=== PATIENT | female | born 1975 | race Caucasian/White ===

== ENCOUNTER 2016-10-13 16:07 | Inpatient (IN) | payer BC ==
[~2016-10-13] VITALS: Ht 157.5 cm; Wt 74.0 kg
[2016-10-13] VITALS (26 sets, daily range): BP systolic 124–164; BP diastolic 71–99
[2016-10-13] MEDS ORDERED: AMPICILLIN SOD 2 GM in D5W MINI-BAG PLUS 100 ML IV ONE (17:00)
[2016-10-13] MEDS ORDERED: MAG Sulf (L&D) 4 GM/100 ML 4 GM in APPROPRIATE DILUENT 1 EA IV ONE (17:00)
[2016-10-13] MEDS ORDERED: LABETALOL HCL 100 MG/20 ML VIAL IV SCH (17:15)
[2016-10-13] MEDS: BETAMETHASONE SOLUSPAN 6MG/ML INJ 5ML (J0702) IM SCH (17:35)
[2016-10-13] MEDS: LR 1,000 ML IV SCH ×2 (17:35→23:15)
[2016-10-13] MEDS ORDERED: PRENTAB9 PO (17:35)
[2016-10-13] MEDS: MAG Sulf (OBGYN) 20GM/500ML 20,000 MG in APPROPRIATE DILUENT 1 EA IV SCH (18:13)
[2016-10-13 18:32] LABS: BASO % 0.2 % (0.0-1.0); EOS # 0.1 K/mm3 (0.0-0.50); EOS % 0.7 % (0.0-3.0); LARGE UNSTAINED CELL # 0.2 K/mm3 (0.0-0.4); LARGE UNSTAINED CELL % 2.1 % (0.0-4.0); LYMPH # 1.5 K/mm3 (1.5-4.5); LYMPH % 16.2 % (24.0-44.0); MEAN CORPUSCULAR HEMOGLOBIN 21.3 pg (27.0-33.0); MEAN CORPUSCULAR HGB CONC 30.4 g/dl (32.0-36.5); MEAN CORPUSCULAR VOLUME 69.9 fl (80.0-96.0); MONO # 0.4 K/mm3 (0.0-0.8); MONO % 4.8 % (0.0-5.0); NEUTROPHILS # 6.8 K/mm3 (1.8-7.7); NEUTROPHILS % 75.9 % (36.0-66.0); PLATELET COUNT, AUTOMATED 180 k/mm3 (150-450); RED CELL DISTRIBUTION WIDTH 19.1 % (11.5-14.5); WHITE BLOOD COUNT 8.9 K/mm3 (4.0-10.0)
--- NOTE | 2016-10-13 18:34 | REP ---
Clinical: well-being and cervical length . Comparison: None . Findings: Examination demonstrates a single live advanced intrauterine in cephalic presentation. motion is identified by technologist. Placenta is noted anteriorly and grade II without evidence for placenta previa or abruption. Amniotic fluid volume is normal. Cervix measures 4.1 cm in length and appears closed. No evidence for nuchal cord. Gestational age by LMP 33 weeks 0 days with ILDA 12/01/2016 . Gestational age by current measurements 34 weeks 1 day with ILDA 11/23/2016 . FHR equals 180 beats per minute. Estimated weight 2359 grams ( 47th percentile). Amniotic fluid index equals 12.7 cm (8.1 - 24.8) Umbilical cord SD ratio equals 2.50 (2.00 - 3.00). 4 mm left choroid plexus cyst. Impression: 1. Single live advanced gestation in cephalic presentation demonstrating appropriate interval growth. 2. A 4 mm left choroid plexus cyst. 3. Amniotic fluid volume and estimated weight are within normal range. 4. Cervix measures 4.1 cm in length with a closed internal os. Signed by John Potter MD 10/13/2016 06:25 P
[2016-10-13 18:43] LABS: ADD MORPHOLOGY? YES
[2016-10-13 18:47] LABS: ANISOCYTOSIS 2+; MICROCYTOSIS 2+; POLYCHROMASIA 1+
[2016-10-13 18:49] LABS: ALT/SGPT 23 U/L (12-78); AST/SGOT 24 U/L (15-37); BILIRUBIN,TOTAL 0.3 MG/DL (0.2-1.0); CREATININE FOR GFR 0.49 MG/DL (0.55-1.02); GLOMERULAR FILTRATION RATE > 60.0 (>60); URIC ACID 4.2 MG/DL (2.6-6.0)
[2016-10-13] MEDS: AMPICILLIN SOD 1 GM in D5W MINI-BAG PLUS 50 ML IV SCH (23:15)
[2016-10-13 23:21] LABS: MEAN CORPUSCULAR HEMOGLOBIN 22.2 pg (27.0-33.0); MEAN CORPUSCULAR HGB CONC 31.9 g/dl (32.0-36.5); MEAN CORPUSCULAR VOLUME 69.6 fl (80.0-96.0); RED CELL DISTRIBUTION WIDTH 19.6 % (11.5-14.5); WHITE BLOOD COUNT 10.3 K/mm3 (4.0-10.0)
[2016-10-13 23:43] LABS: ALT/SGPT 23 U/L (12-78); AST/SGOT 24 U/L (15-37); BILIRUBIN,TOTAL 0.3 MG/DL (0.2-1.0); CREATININE FOR GFR 0.57 MG/DL (0.55-1.02); GLOMERULAR FILTRATION RATE > 60.0 (>60); URIC ACID 4.7 MG/DL (2.6-6.0)
[2016-10-14] VITALS (39 sets, daily range): BP systolic 119–144; BP diastolic 65–94
[2016-10-14] MEDS: AMPICILLIN SOD 1 GM in D5W MINI-BAG PLUS 50 ML IV SCH ×5 (01:56→17:20)
[2016-10-14] MEDS: LR 1,000 ML IV SCH ×2 (01:57→16:52)
[2016-10-14] MEDS: MAG Sulf (OBGYN) 20GM/500ML 20,000 MG in APPROPRIATE DILUENT 1 EA IV SCH ×2 (01:58→12:08)
[2016-10-14] MEDS: BETAMETHASONE SOLUSPAN 6MG/ML INJ 5ML (J0702) IM SCH (05:48)
[2016-10-14 07:12] LABS: MEAN CORPUSCULAR HEMOGLOBIN 21.5 pg (27.0-33.0); MEAN CORPUSCULAR HGB CONC 30.9 g/dl (32.0-36.5); MEAN CORPUSCULAR VOLUME 69.7 fl (80.0-96.0); RED CELL DISTRIBUTION WIDTH 19.7 % (11.5-14.5); WHITE BLOOD COUNT 8.8 K/mm3 (4.0-10.0)
--- NOTE | 2016-10-14 07:35 | HPE ---
DATE OF ADMISSION: 10/13/2016 Deyanira is a 41-year-old female, 2, para 0-0-1-0 with an EDC of 12/01/2016, EGA 33 weeks gestation, patient of Denise Thomas who was sent to the hospital for admission after presenting to her office with severely elevated blood pressure and complaints of headache and dizziness. She was found to have a 4+ protein on a random urine dipstick with +2 lower extremity edema. At this point, she is being sent for a further evaluation of severe preeclampsia. Upon my evaluation of her in labor and delivery, the patient denies any blurred vision. No headache. Did complain of some dizziness. As per the patient, no prior history of elevated blood pressure. She does report lower extremity edema as well as hand and facial swelling. Good movement. Her records reviewed, essentially unremarkable. labs: Blood type is O+, rubella immune, hepatitis negative, HIV negative, GC chlamydia negative. 1 hour GCT Testing was abnormal at 144. Her 3 hours sugar testing, fasting was 85, 1 hour 177, 2 hours 196 and 3 hours of 149. Her finger stick all throughout her care has been within normal limits. PAST MEDICAL HISTORY: Significant for anemia. PAST SURGICAL HISTORY: The patient had breast implants and labial reduction. SOCIAL HISTORY: Denies any alcohol or drug use. REVIEW OF SYSTEMS: Unremarkable. MEDICATIONS: - vitamins ALLERGIES: No known drug allergies. PHYSICAL EXAMINATION: Normal-appearing female in no acute distress. Abdomen: Soft, nontender, nondistended. Gravid. Extremities: No clubbing, cyanosis, +2-3 lower extremity edema. Deep tendon reflux (DTR) 2/4 bilaterally. Cervix soft and posterior. Tracing reviewed, category 1 tracing with contractions every 2-4 minutes. Blood pressure in Denise William's office was 158/100. Blood pressures here on admission was 160/94 with subsequent blood pressures done 158/97 and the latest was 125/91. ASSESSMENT: 1. Intra-Uterine at 33 weeks gestation r/o labor. 2. Preeclampsia, rule out severe preeclampsia. 3. Advanced maternal age 4. Diabetes diet control. The patient will be admitted to labor and delivery for observation, serial lab, bedside ultrasound ordered. Given her contraction pattern and her prematurity and the possibility of severe preeclampsia, we discussed treatment plan. A decision was made to start the patient on magnesium sulfate to stop the contraction, initiate betamethasone for lung maturity. Group B Streptococcus (GBS) culture done. Ampicillin will be started for GBS prophylaxis. The patient counseled extensively on delivery. Given her prematurity if she had to be delivered, baby would probably need to be in the NICU for over 4-5 weeks. At this point, we are not anticipating delivery. However, she will be monitored closely. If her preeclampsia worsen, she will be induced and if induction is not possible, a section will be entertained. cc: Denise OGLESBY
[2016-10-14 13:28] LABS: ALT/SGPT 23 U/L (12-78); AST/SGOT 24 U/L (15-37); BILIRUBIN,TOTAL 0.5 MG/DL (0.2-1.0); CREATININE FOR GFR 0.49 MG/DL (0.55-1.02); GLOMERULAR FILTRATION RATE > 60.0 (>60); URIC ACID 5.6 MG/DL (2.6-6.0)
[2016-10-14 13:37] LABS: MAGNESIUM LEVEL 6.5 MG/DL (1.8-2.4)
== END 2016-10-14 19:30 | disposition home or self-care (01) | DRG 566 ==
LOC: M LDO 16:07 → M LDI 17:32
PROVIDERS: ADMIT Obstetrics & Gynecology; ATTEND Obstetrics & Gynecology
DX: O14.13 Severe pre-eclampsia, third trimester (principal); O24.410 Gestational diabetes mellitus in pregnancy, diet controlled; O09.523 Supervision of elderly multigravida, third trimester; Z3A.33 33 weeks gestation of pregnancy

== ENCOUNTER 2016-10-19 20:07 | Outpatient (CLI) | payer BC ==
[~2016-10-19 20:07] MED LIST: PRENTAB9 PO
[2016-10-19 20:31] VITALS: BP 149/96
[2016-10-19 20:41] VITALS: BP 141/91
[2016-10-19 20:51] VITALS: BP 140/86
[2016-10-19 21:24] LABS: MEAN CORPUSCULAR HEMOGLOBIN 22.2 pg (27.0-33.0); MEAN CORPUSCULAR HGB CONC 31.8 g/dl (32.0-36.5); RED CELL DISTRIBUTION WIDTH 18.8 % (11.5-14.5)
[2016-10-19 21:30] LABS: ALT/SGPT 23 U/L (12-78); AST/SGOT 17 U/L (15-37); BILIRUBIN,TOTAL 0.2 MG/DL (0.2-1.0); CREATININE FOR GFR 0.61 MG/DL (0.55-1.02); GLOMERULAR FILTRATION RATE > 60.0 (>60); URIC ACID 4.4 MG/DL (2.6-6.0)
[2016-10-19 21:53] VITALS: BP 130/72
--- NOTE | 2016-10-19 22:28 | IPNPDOC ---
Obstetrical Progress Note Date of Service The patient was seen on 10/19/16 at 21:15. Progress Note SUBJECTIVE: Patient is a 41-year-old female who is a at 34 weeks 3 days gestation with an ILDA of 11/27/16 based off her LMP and consistent with her first trimester ultrasound. Patient initiated care in her first trimester at [facility] and transferred her care to [facility] midwifery with Denise Thomas CNM at 21 weeks gestation. She is now patient of [facility] services under Dr. Luaren due to the high risk of her . Patient's has been complicated by gestational diabetes that is diet controlled, onset of preeclampsia at 33 weeks gestation, and advanced maternal age. The patient is beta complete as of 10/14/2016. The patient presents to labor and delivery with complaints of right neck and shoulder pain that was a sudden onset. She reports she took 1000 mg of Tylenol at 4:30 PM with minimal relief. Patient also reports she took her blood pressure at home and it was 170/100. Patient currently denies any headache visual changes or epigastric pain. Reports active movement. Denies leaking of fluid, vaginal bleeding, or feeling any contractions. OBJECTIVE: heart rate 150 with moderate variability, positive accelerations, no decelerations. Contractions are every 2-9 minutes. Urine dipstick done: Specific gravity 1.025, pH 5, 3+ protein. PHYSICAL EXAMINATION: Respiratory: Respirations regular. No use of accessory muscles. Lungs clear bilaterally. Cardiac: Regular rate and regular rhythm. No murmurs auscultated. Abdomen: Gravid. Extremities: Bilateral lower legs and feet with 3-4+ pitting edema. Varicosities noted on left leg. Neurological: A and O 3. Cranial nerves grossly intact. PERRLA. No noted neurological impairments. VITAL SIGNS: Please see below. CURRENT LABS: Please see below. ASSESSMENT: * IUP at 34 weeks 3 days gestation * Preeclampsia * A1 GDM * Category 1 heart rate tracing * Advanced maternal age PLAN: Current preeclamptic labs obtained. Dr. Lauren notified of patient's labs , blood pressure, and status. The plan is to discharge patient to home with follow-up in the office within the next 2 days. Patient encouraged not to take blood pressure while she is at home. Encouraged to call office with any symptoms of preeclampsia or concerns about any abnormal symptoms. Preeclamptic signs and symptoms reviewed again with patient and . Reviewed current labs and blood pressure with patient. Reviewed access to care, rest coverage of care, kick counts, labor signs and symptoms, and danger signs to report. Comfort measures were reviewed with patient to include warm heat, massage and Tylenol as needed for pain management of neck and shoulder pain. VS, I&O, 24H, Fishbone Vital Signs/I&O Vital Signs Label Value Date Time Patient Temperature 97.3 degrees F 10/19/162152 Pulse 73 10/19/162152 Respiratory Rate 18 bpm 10/19/162152 Blood Pressure Assessment 130/72 (91) 10/19/162152 Source Automatic Cuff (NIBP) Vital Signs Label Value Date Time Pulse 86 10/19/162030 Respiratory Rate 18 bpm 10/19/162030 Blood Pressure Assessment 149/96 (113) 10/19/162030 Source Automatic Cuff (NIBP) Laboratory Data 24H LABS Item Value Date Time White Blood Count 8.0 K/mm3 10/19/162058 Red Blood Count 4.60 M/mm3 10/19/162058 Mean Corpuscular Volume 70.0 fl L 10/19/162058 Mean Corpuscular Hemoglobin 22.2 pg L 10/19/162058 Mean Corpuscular Hemoglobin Concent 31.8 g/dl L 10/19/162058 Red Cell Distribution Width 18.8 % H 10/19/162058 Platelet Count 192 k/mm3 10/19/162058 Creatinine 0.61 MG/DL 10/19/162058 Glomerular Filtration Rate > 60.0 10/19/162058 Uric Acid 4.4 MG/DL 10/19/162058 Total Bilirubin 0.2 MG/DL 10/19/162058 Aspartate Amino Transf (AST/SGOT) 17 U/L 10/19/162058 Alanine Aminotransferase (ALT/SGPT) 23 U/L 10/19/162058 Lactate Dehydrogenase 162 U/L 10/19/162058 CBC/BMP Laboratory Tests 10/19/16 20:59 NANCY ZAZUETA CNM Oct 19, 2016 22:22
== END 2016-10-19 22:45 | disposition home or self-care (01) ==
LOC: M LDO 20:07
PROVIDERS: ATTEND Obstetrics & Gynecology
DX: O24.420 Gestational diabetes mellitus in childbirth, diet controlled (principal); O09.523 Supervision of elderly multigravida, third trimester; Z3A.34 34 weeks gestation of pregnancy

== ENCOUNTER 2016-10-21 16:24 | Inpatient (IN) | payer BC ==
[2016-10-21] VITALS (41 sets, daily range): BP systolic 129–189; BP diastolic 74–109
[~2016-10-21] VITALS: Ht 157.5 cm; Wt 72.0 kg
[2016-10-21 17:24] LABS: MEAN CORPUSCULAR HEMOGLOBIN 21.6 pg (27.0-33.0); MEAN CORPUSCULAR HGB CONC 31.2 g/dl (32.0-36.5); MEAN CORPUSCULAR VOLUME 69.3 fl (80.0-96.0); RED CELL DISTRIBUTION WIDTH 18.4 % (11.5-14.5); WHITE BLOOD COUNT 10.4 K/mm3 (4.0-10.0)
[2016-10-21] MEDS ORDERED: LABETALOL HCL 100 MG/20 ML VIAL IV PRN (17:30)
[2016-10-21] MEDS ORDERED: LABETALOL HCL 100 MG/20 ML VIAL As Ordered ONE (17:35)
[2016-10-21] MEDS ORDERED: LABETALOL HCL 100 MG/20 ML VIAL IV ONE ×2 (17:45→18:15)
[2016-10-21 18:04] LABS: ALT/SGPT 29 U/L (12-78); AST/SGOT 33 U/L (15-37); BILIRUBIN,TOTAL 0.2 MG/DL (0.2-1.0); CREATININE FOR GFR 0.45 MG/DL (0.55-1.02); GLOMERULAR FILTRATION RATE > 60.0 (>60); URIC ACID 4.5 MG/DL (2.6-6.0)
[2016-10-21] MEDS ORDERED: LR 1,000 ML IV SCH (18:06)
[2016-10-21] MEDS: LR 1,000 ML IV SCH (18:12)
[2016-10-21] MEDS ORDERED: MAG Sulf (L&D) 4 GM/100 ML 4 GM in APPROPRIATE DILUENT 1 EA IV ONE (18:15)
[2016-10-21] MEDS ORDERED: LABETALOL HCL 100 MG/20 ML VIAL IV SCH (18:30)
[2016-10-21] MEDS ORDERED: OXYTOCIN DRIP 30 UNITS in APPROPRIATE DILUENT 1 EA IV SCH (19:00)
[2016-10-21] MEDS ORDERED: AMPICILLIN SOD 1 GM in D5W MINI-BAG PLUS 50 ML IV SCH (19:15)
[2016-10-21] MEDS: MAG Sulf (OBGYN) 20GM/500ML 20,000 MG in APPROPRIATE DILUENT 1 EA IV SCH (19:17)
--- NOTE | 2016-10-21 20:37 | HPE ---
DATE OF ADMISSION: 10/21/2016 HISTORY OF PRESENT ILLNESS: Deyanira is a 41-year-old female, para 0-0-1-0 with an estimated date of confinement (EDC) of 11/27/2016, estimated gestational age (EGA) 34-4/7 weeks gestation by 13 weeks ultrasound, seen in my office for last two weeks with preeclampsia. She was a late transfer at approximately 33 weeks gestation for preeclampsia. She was seen and evaluated in the hospital, was steroid complete and was discharged home with monitoring twice weekly with non-stress test (NST) and ultrasound. She presented today to the office with complaints of headache that will not go away, even after Tylenol. Headache is frontal. Denies any blurred vision. No shortness of breath. Her blood pressure upon evaluation in the office was 150/98. She had a prior 24 hours urine protein totaling 3,521, and a total protein of 180. Evaluation here in labor and delivery, her blood pressures continue to be elevated in the 170-160s over 107- 110. Again no blurred vision. No upper quadrant pain. Her records are reviewed. The patient does have a questionable history of gestational diabetes for which she has been doing her blood fingersticks twice a day and all have been within normal limits. Upon further evaluation of her three-hour sugar testing, it was found to be within normal limits. LABORATORIES: Blood type is O positive, rubella immune, hepatitis negative, HIV negative, GC/chlamydia negative, done on 10/13/2016, was positive for group B strep. PAST MEDICAL HISTORY: Significant for preeclampsia. PAST SURGICAL HISTORY: 1. Bilateral breast implants in 2015. 2. Loop electrosurgical excision procedure (LEEP) procedure done in 1996. 3. Labial reduction in 2013. SOCIAL HISTORY: She is . Denies any alcohol or drug use. REVIEW OF SYSTEMS: Significant for frontal headache. FAMILY HISTORY: Significant for thyroid cancer, heart disease and diabetes. MEDICATIONS: vitamins. ALLERGIES: SULFA DRUGS. PHYSICAL EXAMINATION: GENERAL: Normal-appearing female in no acute distress. ABDOMEN: Soft, nontender, nondistended, gravid. EXTREMITIES: No clubbing, cyanosis, +2 lower extremity edema. DTR 2/4 bilaterally. VAGINAL EXAM: Cervix is closed, thick and posterior, with the fetus at -3 to -4 station. Bedside ultrasound done confirmed fetus in vertex position. Category one tracing with baseline of 150s. No deceleration. Contractions every 3-4 minutes. LABORATORY DATA: Initial lab in labor and delivery: White count of 10.4, hemoglobin and hematocrit of 11.3 over 36, platelet of 165. Uric acid 4.5, AST 33, ALT 29, LDH 247. Random creatinine 99.2. Urine random total protein 722.3, protein ratio of 0.137. ASSESSMENT: 1. Intrauterine at 34-4/7 weeks gestation based on 13-week ultrasound ; steroid complete. 2. Severe preeclampsia with central nervous system (PATIENT SCHEDULING COORDINATOR) symptoms and severely elevated blood pressure. PLAN: The patient will be admitted to labor and delivery. Induction process discussed with the patient. Given the severe nature of her preeclampsia and her symptoms, we will proceed with delivery. She is to undergo magnesium sulfate for seizure prophylaxis. Labetalol IV given to control her blood pressures. Given that we do not have Cervidil on formulary in this hospital and no other form of approved cervical ripening agent other than Cytotec off label use for induction, I counseled the patient and her extensively. She will be observed as she is jolene every 3-[address] a Chacon bulb at this point as her cervix is closed. At this point, given her blood pressure and the contractions, Cytotec would not be a good option for this patient. Increase risks of cytotec for this patient discussed, including distress, meconeium fluid, uterine hyperstimulation and uterine rupture. I will continue to monitor. Followup serial labs, and if her cervix begins to dilate and a Chacon bulb can be placed, we will entertain a Chacon bulb with possible Pitocin induction. If severe pre-eclampsia worsen or symptoms persist and she remains remote from delivery, the possibility of section will be entertained. Both patient and agree with plan.. RENY
[2016-10-21] MEDS ORDERED: ACETAMINOPHEN TAB 650MG DOSE (2X325MG) PO ONE (20:45)
[2016-10-21 21:14] LABS: MEAN CORPUSCULAR HEMOGLOBIN 21.4 pg (27.0-33.0); MEAN CORPUSCULAR HGB CONC 30.7 g/dl (32.0-36.5); MEAN CORPUSCULAR VOLUME 69.6 fl (80.0-96.0); RED CELL DISTRIBUTION WIDTH 18.3 % (11.5-14.5); WHITE BLOOD COUNT 10.1 K/mm3 (4.0-10.0)
[2016-10-21 21:41] LABS: ALT/SGPT 29 U/L (12-78); AST/SGOT 29 U/L (15-37); BILIRUBIN,TOTAL 0.2 MG/DL (0.2-1.0); CREATININE FOR GFR 0.46 MG/DL (0.55-1.02); GLOMERULAR FILTRATION RATE > 60.0 (>60); MAGNESIUM LEVEL 4.2 MG/DL (1.8-2.4); URIC ACID 4.4 MG/DL (2.6-6.0)
[2016-10-22] VITALS (42 sets, daily range): BP systolic 120–157; BP diastolic 65–99
[2016-10-22 01:17] LABS: MEAN CORPUSCULAR HEMOGLOBIN 21.7 pg (27.0-33.0); MEAN CORPUSCULAR HGB CONC 30.9 g/dl (32.0-36.5); MEAN CORPUSCULAR VOLUME 70.3 fl (80.0-96.0); RED CELL DISTRIBUTION WIDTH 18.5 % (11.5-14.5); WHITE BLOOD COUNT 12.3 K/mm3 (4.0-10.0)
[2016-10-22 01:25] LABS: ALT/SGPT 31 U/L (12-78); AST/SGOT 33 U/L (15-37); BILIRUBIN,TOTAL 0.3 MG/DL (0.2-1.0); CREATININE FOR GFR 0.54 MG/DL (0.55-1.02); GLOMERULAR FILTRATION RATE > 60.0 (>60); URIC ACID 4.7 MG/DL (2.6-6.0)
[2016-10-22] MEDS ORDERED: ONDANSETRON 4MG/2ML VIAL (J2405) As Ordered ONE ×2 (04:37→12:52)
[2016-10-22] MEDS ORDERED: ONDANSETRON 4MG/2ML VIAL (J2405) IV ONE (04:45)
[2016-10-22] MEDS: LR 1,000 ML IV SCH (05:03)
[2016-10-22] MEDS: MAG Sulf (OBGYN) 20GM/500ML 20,000 MG in APPROPRIATE DILUENT 1 EA IV SCH ×2 (05:04→13:30)
[2016-10-22 06:40] LABS: MEAN CORPUSCULAR HEMOGLOBIN 22.2 pg (27.0-33.0); MEAN CORPUSCULAR HGB CONC 31.7 g/dl (32.0-36.5); MEAN CORPUSCULAR VOLUME 70.2 fl (80.0-96.0); RED CELL DISTRIBUTION WIDTH 18.8 % (11.5-14.5); WHITE BLOOD COUNT 13.2 K/mm3 (4.0-10.0)
[2016-10-22 06:53] LABS: ALT/SGPT 34 U/L (12-78); AST/SGOT 36 U/L (15-37); BILIRUBIN,TOTAL 0.3 MG/DL (0.2-1.0); CREATININE FOR GFR 0.51 MG/DL (0.55-1.02); GLOMERULAR FILTRATION RATE > 60.0 (>60); URIC ACID 4.7 MG/DL (2.6-6.0)
[2016-10-22 06:55] LABS: MAGNESIUM LEVEL 6.2 MG/DL (1.8-2.4)
[2016-10-22] MEDS: PRENATAL VITAMIN TAB PO SCH ×2 (09:00→15:50)
[2016-10-22 10:07] LABS: MEAN CORPUSCULAR HEMOGLOBIN 21.2 pg (27.0-33.0); MEAN CORPUSCULAR HGB CONC 30.2 g/dl (32.0-36.5); MEAN CORPUSCULAR VOLUME 70.2 fl (80.0-96.0); RED CELL DISTRIBUTION WIDTH 18.5 % (11.5-14.5); WHITE BLOOD COUNT 12.7 K/mm3 (4.0-10.0)
[2016-10-22 10:14] LABS: ALT/SGPT 38 U/L (12-78); AST/SGOT 43 U/L (15-37); BILIRUBIN,TOTAL 0.3 MG/DL (0.2-1.0); CREATININE FOR GFR 0.53 MG/DL (0.55-1.02); GLOMERULAR FILTRATION RATE > 60.0 (>60); URIC ACID 4.9 MG/DL (2.6-6.0)
[2016-10-22] MEDS ORDERED: LACTATED RINGER'S 1000 ML IV STA (10:24)
[2016-10-22] MEDS ORDERED: BICITRA 30ML SOLN UDC PO ONE (10:30)
[2016-10-22] MEDS ORDERED: MORPHINE PRES-FREE INJ 10 MG/10 ML VIAL (J2274) As Ordered ONE (12:16)
[2016-10-22] MEDS ORDERED: METOCLOPRAMIDE INJ 10MG/2ML VIAL (J2765) IV PRN ×2 (12:32→14:30)
[2016-10-22] MEDS ORDERED: NALBUPHINE HCL 10 MG/ML AMP (J2300) IV PRN ×2 (12:32→14:30)
[2016-10-22] MEDS ORDERED: ONDANSETRON 4MG/2ML VIAL (J2405) IV PRN ×3 (12:32→14:30)
[2016-10-22] MEDS ORDERED: NALOXONE INJ 0.4 MG/1 ML VIAL (J2310) IV PRN ×2 (12:32)
[2016-10-22] MEDS ORDERED: KETOROLAC 60 MG/2 ML VIAL (J1885) As Ordered ONE (12:52)
[2016-10-22] MEDS ORDERED: ePHEDrine SULFATE 25 MG/5 ML(5MG/ML) SYRINGE As Ordered ONE (12:52)
[2016-10-22] MEDS ORDERED: OXYTOCIN INJ 10 UNITS/ML VIAL (J2590) As Ordered ONE (12:52)
[2016-10-22] MEDS ORDERED: PHENYLephrine HCL 500 MCG/5 ML (100MCG/ML) SYRINGE (J2370) As Ordered ONE (12:52)
[2016-10-22 13:17] LABS: CORD GAS ABE A -5.5; CORD GAS HCO3 A 21.4 MEQ/L; CORD GAS O2 SAT A 58.4 %; CORD GAS PCO2 A 46.6 mmHg; CORD GAS PH A 7.279 UNITS; CORD GAS PO2 A 26.8 mmHg; CORD GAS SBC A 19.1 MEQ/L; CORD GAS TCO2 A 22.8 MEQ/L
[2016-10-22] MEDS ORDERED: LR 1,000 ML IV SCH ×2 (13:17→14:30)
[2016-10-22 13:21] LABS: CORD GAS ABE V -1.9; CORD GAS HCO3 V 25.8 MEQ/L; CORD GAS O2 SAT V 60.5 %; CORD GAS PCO2 V 55.6 mmHg; CORD GAS PH V 7.285 UNITS; CORD GAS PO2 V 27.7 mmHg; CORD GAS SBC V 21.9 MEQ/L; CORD GAS TCO2 V 27.5 MEQ/L
[2016-10-22] MEDS ORDERED: ANUSOL HC CREAM 30GM TOP PRN (13:30)
[2016-10-22] MEDS ORDERED: MOM 30ML SUSPENSION UDC PO PRN (13:30)
[2016-10-22] MEDS ORDERED: METHYLERGONOVINE MALEATE 0.2 MG TAB PO PRN (13:30)
[2016-10-22] MEDS ORDERED: MEASLES,MUMPS,RUBELLA VACCINE INJ (MMR-II) (90707) SC SCH (13:30)
[2016-10-22] MEDS ORDERED: PERCOCET 5MG/325MG TAB PO PRN (14:30)
[2016-10-22] MEDS ORDERED: MEPERIDINE INJ 25 MG/ML VIAL (J2175) IV PRN (14:30)
[2016-10-22] MEDS ORDERED: fentaNYL 100 MCG/2 ML INJECTION (J3010) IV PRN (14:30)
[2016-10-22] MEDS: RHOGAM 300 MCG (1500 IU) INJ (J2790) IM SCH (15:40)
[2016-10-22 20:34] LABS: MEAN CORPUSCULAR HEMOGLOBIN 21.8 pg (27.0-33.0); MEAN CORPUSCULAR HGB CONC 31.7 g/dl (32.0-36.5); MEAN CORPUSCULAR VOLUME 68.6 fl (80.0-96.0); RED CELL DISTRIBUTION WIDTH 18.3 % (11.5-14.5)
[2016-10-22 20:37] LABS: ALT/SGPT 36 U/L (12-78); AST/SGOT 39 U/L (15-37); BILIRUBIN,TOTAL 0.2 MG/DL (0.2-1.0); CREATININE FOR GFR 0.76 MG/DL (0.55-1.02); GLOMERULAR FILTRATION RATE > 60.0 (>60); URIC ACID 5.2 MG/DL (2.6-6.0)
[2016-10-22 20:39] LABS: MAGNESIUM LEVEL 5.3 MG/DL (1.8-2.4)
[2016-10-22] MEDS: DOCUSATE SODIUM 100 MG CAP PO SCH (21:07)
[2016-10-23] VITALS (17 sets, daily range): BP systolic 123–198; BP diastolic 72–107
[2016-10-23] MEDS: NORCO, ANEXSIA 5/325MG TABLET (HYDROcodone/ACETAMINOPHEN) PO PRN ×3 (04:44→20:56)
[2016-10-23 08:08] LABS: MEAN CORPUSCULAR HEMOGLOBIN 21.4 pg (27.0-33.0); MEAN CORPUSCULAR HGB CONC 30.3 g/dl (32.0-36.5); MEAN CORPUSCULAR VOLUME 70.6 fl (80.0-96.0); RED CELL DISTRIBUTION WIDTH 18.9 % (11.5-14.5); WHITE BLOOD COUNT 9.7 K/mm3 (4.0-10.0)
[2016-10-23 08:17] LABS: ALT/SGPT 35 U/L (12-78); AST/SGOT 39 U/L (15-37); BILIRUBIN,TOTAL 0.2 MG/DL (0.2-1.0); CREATININE FOR GFR 0.59 MG/DL (0.55-1.02); GLOMERULAR FILTRATION RATE > 60.0 (>60); URIC ACID 5.8 MG/DL (2.6-6.0)
[2016-10-23] MEDS ORDERED: LR 1,000 ML IV SCH (08:30)
--- NOTE | 2016-10-23 08:46 | RO ---
DATE OF PROCEDURE: 10/22/2016 Deyanira is a 41-year-old female, 2, para 0-0-1-0, who was admitted at 34-6/7 weeks' gestation with severe preeclampsia, who is remote from delivery. The patient requested delivery via primary section. After extensive counseling, a decision was made to stop the induction and proceed with the section as requested. PREOPERATIVE DIAGNOSES: 1. Intrauterine at 34-6/7 weeks' gestation. 2. Severe preeclampsia, remote from delivery. 3. The patient requesting delivery via section. POSTOPERATIVE DIAGNOSES: 1. Intrauterine at 34-6/7 weeks' gestation. 2. Severe preeclampsia, remote from delivery. 3. The patient requesting delivery via section. 4. Floating vertex. PROCEDURE: Primary low transverse section via Pfannenstiel incision. ANESTHESIA: Spinal. SURGEON: Terry Lauren DO OIL FILTERS INSPECTOR: Maliha Villanueva CNM ESTIMATED BLOOD LOSS: 350 mL. FINDING: A live male infant in a floating vertex position. scores 8 and 9. weight 5 pounds 11 ounces. Normal-appearing tube and ovaries. Normal uterus. DESCRIPTION OF PROCEDURE: After obtaining informed consent, the patient was taken to the operating room, where spinal anesthetic was found to be adequate. She was then draped and prepped in the usual sterile fashion in the supine position. At this point, a Pfannenstiel incision was made. This was carried down to the fascia. Fascia was incised in midline fashion and carried through laterally. Superior aspect of the fascia was then grasped with Ciaran clamps, tented off, and dissected off the rectus muscles sharply. The inferior aspect was dissected off in similar fashion. Rectus muscles in midline fashion. Perineum identified. Peritoneal cavity entered bluntly. Superior and inferior dissection of the peritoneum was then done with good visualization of the bladder. At this point, a Mobius skin retractor was placed. A low-transverse uterine incision was made. was delivered in atraumatic fashion. Nose and mouth bulb suctioned. Cord doubly clamped and cut, and infant was handed over to the awaiting fish pitcher. Cord blood and cord gas were sent. Placenta removed manually. Uterus cleared of all clot and debris, and the uterine incision was then repaired in two separate layers of 0 Vicryl suture. Pelvis copiously irrigated with normal saline and suctioned out. The attention was then turned to the peritoneum, which was closed in running fashion using 2-0 Vicryl. Fascia closed in two separate segments of 0 Vicryl sutures, and the skin was reapproximated in a subcuticular fashion using 3-0 Vicryl in a Sundeep. Steri-Strips placed. The patient tolerated procedure well. She was then transferred to recovery room in stable condition.
[2016-10-23] MEDS: DOCUSATE SODIUM 100 MG CAP PO SCH ×3 (09:00→20:56)
[2016-10-23] MEDS: PRENATAL VITAMIN TAB PO SCH (09:32)
[2016-10-23] MEDS: MAG Sulf (OBGYN) 20GM/500ML 20,000 MG in APPROPRIATE DILUENT 1 EA IV SCH (09:32)
[2016-10-23] MEDS: LABETALOL 200 MG TAB PO SCH ×2 (09:55→20:56)
[2016-10-23] MEDS ORDERED: IBUPROFEN 800 MG TAB As Ordered ONE (10:22)
[2016-10-23] MEDS: IBUPROFEN 800 MG TAB PO PRN ×2 (10:24→19:38)
[2016-10-23] MEDS ORDERED: IBUPROFEN 800 MG TAB PO SCH (14:00)
[2016-10-23] MEDS: RHOGAM 300 MCG (1500 IU) INJ (J2790) IM SCH (17:08)
[2016-10-24] VITALS (7 sets, daily range): BP systolic 134–150; BP diastolic 75–96
[2016-10-24] MEDS: IBUPROFEN 800 MG TAB PO PRN ×2 (04:35→19:54)
[2016-10-24] MEDS: NORCO, ANEXSIA 5/325MG TABLET (HYDROcodone/ACETAMINOPHEN) PO PRN ×3 (06:11→17:14)
[2016-10-24] MEDS: PRENATAL VITAMIN TAB PO SCH (08:37)
[2016-10-24] MEDS: DOCUSATE SODIUM 100 MG CAP PO SCH ×2 (08:37→21:27)
[2016-10-24] MEDS: LABETALOL 200 MG TAB PO SCH ×2 (08:37→21:26)
[2016-10-24] MEDS ORDERED: diphenhydrAMINE CREAM 30GM TOP PRN (17:45)
[2016-10-24] MEDS ORDERED: diphenhydrAMINE 25 MG CAP PO ONE (21:00)
[2016-10-25 01:40] VITALS: BP 142/78
[2016-10-25 05:33] VITALS: BP 144/89
[2016-10-25] MEDS: NORCO, ANEXSIA 5/325MG TABLET (HYDROcodone/ACETAMINOPHEN) PO PRN (05:53)
[2016-10-25] MEDS ORDERED: BENACRE2 TOP (09:21)
[2016-10-25] MEDS ORDERED: MOTR200T44 PO (09:21)
[2016-10-25] MEDS ORDERED: PRENTAB9 PO (09:21)
[2016-10-25] MEDS ORDERED: LABE20TAB PO (09:21)
[2016-10-25] MEDS: PRENATAL VITAMIN TAB PO SCH (09:29)
[2016-10-25] MEDS: DOCUSATE SODIUM 100 MG CAP PO SCH (09:29)
[2016-10-25 09:30] VITALS: BP 125/83
[2016-10-25] MEDS: LABETALOL 200 MG TAB PO SCH (09:30)
[2016-10-25] MEDS: IBUPROFEN 800 MG TAB PO PRN (11:25)
--- NOTE | 2016-10-26 11:02 | DS.PDOC ---
Discharge Summary General Date of Admission Oct 21, 2016 at 17:20 Date of Discharge Oct 25, 2016 at 0830. Attending Physician: Terry Lauren DO Discharge Summary COMPLICATIONS/CHIEF COMPLAINT: Work Up For Preeclampsia with severe features. DISCHARGE DIAGNOSES: 1. Preeclampsia with severe features. 2. Primary low transverse section. HISTORY OF PRESENT ILLNESS/HOSPITAL COURSE: Patient is now a at 34.5 weeks gestation, who presented to L&D from the office with preeclampsia and now c/o headaches resulting in a diagnosis of preeclampsia with severe features. An induction was started for patient after she was placed on magnesium sulfate and her blood pressures were under control with IV Labetolol. The patient was a failed induction after no cervical change was noted from being on Pitocin for more than 12 hours. A decision was made with the patient, her , and Dr. Lauren to have a section at 34.6 weeks gestation. The section was uncomplicated and baby was admitted to the NICU and placed on a nasal canula for supplemental oxygen. She was then placed back on Magnesium for less than 24 hours and also started on PO labetalol. DISCHARGE MEDICATIONS: Please see below. Labetalol 200 mg PO BID instructed to take. Percocet 5/325 mg every 4 hours PRN for pain sent to pharmacy from office. ALLERGIES: Please see below. PHYSICAL EXAMINATION ON DISCHARGE: Breasts soft, not engorged. Abdomen: fundus 2 below umbilicus. Lochia scant bright red. Low transverse incision: edges approximated and steri strips intact. Dry and no drainage. Rash on abdomen from tape is minimal and better than yesterday. VITAL SIGNS: Please see below. DISCHARGE CONDITION: Stable. ACTIVITY: As tolerated. No heavy lifting, nothing greater than 15 lbs for first 2 weeks. DIET: Regular DISCHARGE PLAN AND INSTRUCTIONS: 1. Discharge to home. Patient may stay as a boarder as long as the hospital has room. Patient is to call the office on Wednesday to make an appointment to follow up in 1 week for a BP check, 2 weeks for incision check, and 6 weeks for a visit. 2. Education done on pain management and importance to take BP medication as directed. 3. Reviewed potential complications of being and a section to include but not limited to: mastitis, hemorrhage, infection at incisional site and symptoms to look for, DVT, pulmonary embolism, symptoms of preeclampsia that patient needs to be aware of. Patient instructed to call with any of these symptoms. Reviewed discharge instructions to include: breast care, pelvic rest, and incisional care. Vital Signs/I&Os Vital Signs Date Time Temp Pulse Resp B/P Pulse Ox O2 Delivery O2 Flow Rate FiO2 10/25/16 10:00 99.2 85 18 97 Room Air 10/25/16 09:30 125/83 Medications Scheduled Ibuprofen (Motrin Ib) 200 Mg Tab 800 MG PO Q8H (Reported) Labetalol HCl (Labetalol HCl) 200 Mg Tab 200 MG PO BID (Reported) Multivitamins/ ( 27-0.8 mg) 1 Tab Tab 1 TAB PO DAILY (Reported ) Scheduled PRN (Benadryl Itch Stopping 1-0.1 %) 1 Cre Cre 1 CRE TOP Q4HP PRN PRN ITCHING ( Reported) Allergies Coded Allergies: Sulfa Antibiotics (Verified Allergy, Unknown, RASH, 10/13/16) NANCY ZAZUETA CNM Oct 26, 2016 11:02
== END 2016-10-25 11:29 | disposition home or self-care (01) | DRG 540 ==
LOC: M LDO 16:24 → M LDI 17:20 → M OBS 10-23 14:05
PROVIDERS: ADMIT Obstetrics & Gynecology; ATTEND Obstetrics & Gynecology
PROC: 10D00Z1 Extraction of Products of Conception, Low, Open Approach (ICD-10-PCS; principal; 2016-10-22 12:43)
DX: O14.14 Severe pre-eclampsia complicating childbirth (principal); O24.429 Gestational diabetes mellitus in childbirth, unspecified control; Z37.0 Single live birth; Z3A.34 34 weeks gestation of pregnancy; O99.820 Streptococcus B carrier state complicating pregnancy; O09.513 Supervision of elderly primigravida, third trimester

== ENCOUNTER 2016-11-01 10:18 | Emergency (ER) | payer BC ==
[~2016-11-01] VITALS: Ht 157.5 cm; Wt 61.2 kg
[~2016-11-01 10:18] MED LIST changes: +BENACRE2 TOP; +LABE20TAB PO; +MOTR200T44 PO
--- NOTE | 2016-11-01 13:07 | REP ---
LEFT LOWER EXTREMITY DUPLEX DOPPLER VENOUS ULTRASOUND: Real-time compression and duplex Doppler interrogation of the left lower extremity deep venous system is performed. Left common femoral and superficial femoral veins are fully compressible with transducer pressure and demonstrate normal spontaneous and phasic flow without deep vein thrombosis. There is, however, deep vein thrombosis of the popliteal vein. There is also thrombus seen in the mid to distal greater saphenous vein. IMPRESSION: DVT left popliteal vein. There is also thrombus seen in the mid to distal left greater saphenous vein. Signed by Mohamud Candelario MD 11/01/2016 01:58 P
[2016-11-01] MEDS ORDERED: LABETALOL 100 MG TAB PO ONE (13:30)
[2016-11-01] MEDS ORDERED: LABETALOL 200 MG TAB PO ONE (13:30)
[2016-11-01 13:39] VITALS: BP 145/102
[2016-11-01 13:43] LABS: BASO % 0.6 % (0.0-1.0); EOS # 0.3 K/mm3 (0.0-0.50); EOS % 4.3 % (0.0-3.0); LARGE UNSTAINED CELL # 0.1 K/mm3 (0.0-0.4); LARGE UNSTAINED CELL % 1.6 % (0.0-4.0); LYMPH # 1.8 K/mm3 (1.5-4.5); LYMPH % 21.1 % (24.0-44.0); MEAN CORPUSCULAR HEMOGLOBIN 22.4 pg (27.0-33.0); MEAN CORPUSCULAR VOLUME 72.1 fl (80.0-96.0); MONO # 0.4 K/mm3 (0.0-0.8); MONO % 5.5 % (0.0-5.0); NEUTROPHILS # 5.2 K/mm3 (1.8-7.7); NEUTROPHILS % 66.9 % (36.0-66.0); PLATELET COUNT, AUTOMATED 267 k/mm3 (150-450); RED CELL DISTRIBUTION WIDTH 18.9 % (11.5-14.5); WHITE BLOOD COUNT 7.8 K/mm3 (4.0-10.0)
[2016-11-01 13:44] LABS: ADD MORPHOLOGY? YES
[2016-11-01 13:48] LABS: INR 0.94
[2016-11-01 13:58] LABS: ALBUMIN 2.9 GM/DL (3.2-5.2); ALBUMIN/GLOBULIN RATIO 0.71 (1.00-1.93); ALKALINE PHOSPHATASE 156 U/L (45-117); ALT/SGPT 44 U/L (12-78); ANION GAP 9 MEQ/L (8-16); AST/SGOT 23 U/L (15-37); BILIRUBIN,DIRECT 0.1 MG/DL (0.0-0.2); BILIRUBIN,TOTAL 0.3 MG/DL (0.2-1.0); BLOOD UREA NITROGEN 15 MG/DL (7-18); CALCIUM LEVEL 8.3 MG/DL (8.5-10.1); CARBON DIOXIDE LEVEL 26 MEQ/L (21-32); CHLORIDE LEVEL 107 MEQ/L (98-107); CREATININE FOR GFR 0.59 MG/DL (0.55-1.02); GLOMERULAR FILTRATION RATE > 60.0 (>60); GLUCOSE, FASTING 78 MG/DL (70-105); POTASSIUM SERUM 4.1 MEQ/L (3.5-5.1); SODIUM LEVEL 142 MEQ/L (136-145)
[2016-11-01 14:07] LABS: ANISOCYTOSIS 2+; HYPOCHROMASIA 1+; MICROCYTOSIS 2+
[2016-11-01 14:41] VITALS: BP 124/80
[2016-11-01] MEDS ORDERED: LABE20TAB GT (16:07)
[2016-11-01] MEDS ORDERED: COUM1TAB17 PO (16:09)
[2016-11-01] MEDS ORDERED: LOVE0.4I2 SC (16:09)
[2016-11-01] MEDS ORDERED: ENOXAPARIN 60 MG/0.6 ML SYR (J1650) SC ONE (16:15)
[2016-11-01] MEDS ORDERED: WARFARIN SOD 5 MG TAB PO ONE (16:15)
--- NOTE | 2016-11-03 03:05 | CR ---
DATE OF CONSULTATION: 11/01/2016 REQUESTING PHYSICIAN: Dr. Lauren GAS LINE REPAIRER COVERING: Dr. Chau PRIMARY CARE PROVIDER: None. REASON FOR CONSULTATION FROM THE EMERGENCY DEPARTMENT: Postoperative deep vein thrombosis (DVT). HISTORY OF PRESENT ILLNESS: This is a 41-year-old female who had a section () on October 19. She has had a gil-acu-x-half of left lower extremity pain was found to have a DVT in the emergency department and there was great consternation about the appropriate treatment of DVT in the period. GAS LINE REPAIRER was consulted and suggested that medical consultation would be better for this patient. PAST MEDICAL HISTORY: Notable for pre-eclampsia, gestational diabetes. PAST SURGICAL HISTORY: Notable for section (), breast augmentation, wisdom teeth removal. ALLERGIES: SULFA. MEDICATIONS AT HOME: Currently include vitamins. She was restarted on labetalol this visit. SOCIAL HISTORY: She is a nonsmoker, recently moved here from [place]. FAMILY HISTORY: Notable for maternal aunts, perhaps with history of blood clot without further information about the age of the aunts, when they had blood clots, or the situation surrounding that. REVIEW OF SYSTEMS: Notable for no chest pain, no shortness of breath. She has left lower extremity discomfort and has been limping. She also is currently . ASSESSMENT: This is a 41-year-old with left lower extremity deep vein thrombosis (DVT). RECOMMENDATION: 1. Hematologic. I have discussed different anticoagulation strategies with the patient including Lovenox 60 mg twice daily given for three months versus Lovenox 60 mg twice daily until Coumadin becomes therapeutic. The patient would prefer not to take Lovenox twice daily as she has an aversion to needles. Currently, the patient has no primary care provider. Tomorrow we will need to obtain a primary care provider for her so that the Coumadin level can be followed. She will be given the number for the hospitalist traveling secretary for further followup. I have discussed this case by phone with the patient's pipe threading machine operator. As long as the Coumadin dose stays less than 12 mg a day, he has no concerns about giving Coumadin. There is no risk to the baby with the use of Lovenox. Given the fact that the newer agents are not adequately studied, we will avoid those. The patient has no history of easy bruising or bleeding or infection. She says she never bruises, has never had a blood clot before, is a nonsmoker. The patient did have pre-eclampsia during this as well as gestational diabetes. Was restarted on labetalol as her systolic blood pressure was recorded as 147/97 upon her arrival.
== END 2016-11-01 17:17 | disposition home or self-care (01) ==
LOC: M ED 11:45
DX: I82.432 Acute embolism and thrombosis of left popliteal vein (principal); I82.812 Embolism and thrombosis of superficial veins of left lower extremity; I10 Essential (primary) hypertension; Z88.2 Allergy status to sulfonamides; Z91.89 Other specified personal risk factors, not elsewhere classified
CPT/HCPCS: 36415; 76882; 80048; 80076; 81001; 85025; 85610; 85730; 93971; 99284; J1650

== ENCOUNTER → 2016-11-03 | Outpatient (CLI) | payer BC ==
[~2016-11-03] MED LIST changes: +COUM1TAB17 PO; +LABE20TAB GT; +LOVE0.4I2 SC
[2016-11-03 21:04] LABS: INR 1.18
== END ==
LOC: M LRY 15:53
PROVIDERS: ATTEND Emergency Medicine
DX: Z51.81 Encounter for therapeutic drug level monitoring (principal); Z79.01 Long term (current) use of anticoagulants; I82.90 Acute embolism and thrombosis of unspecified vein

== ENCOUNTER → 2016-11-05 | Outpatient (REF) | payer BC ==
[2016-11-05 18:18] LABS: INR 1.47
== END ==
LOC: M SFHCPLAZ 16:56
PROVIDERS: ATTEND Emergency Medicine
DX: I82.90 Acute embolism and thrombosis of unspecified vein (principal)

== ENCOUNTER → 2016-11-07 | Outpatient (CLI) | payer BC ==
[2016-11-07 19:21] LABS: INR 1.97
== END ==
LOC: M LRY 14:47
PROVIDERS: ATTEND Emergency Medicine
DX: I82.90 Acute embolism and thrombosis of unspecified vein (principal)

== ENCOUNTER 2016-11-08 18:57 | Emergency (ER) | payer BC ==
[~2016-11-08] VITALS: Ht 157.5 cm; Wt 58.5 kg
[2016-11-08] MEDS ORDERED: diphenhydrAMINE INJ 50MG/ML VIAL (J1200) IV ONE (19:45)
[2016-11-08] MEDS ORDERED: METOCLOPRAMIDE INJ 10MG/2ML VIAL (J2765) IV ONE (19:45)
[2016-11-08] MEDS ORDERED: NS 1,000 ML IV ONE (19:45)
[2016-11-08] MEDS ORDERED: methylPREDNISolone INJ 125 MG/2 ML VIAL (J2930) IV ONE (19:45)
--- NOTE | 2016-11-08 20:20 | REPUSA ---
CLINICAL HISTORY: Headache. TECHNIQUE: Multiple axial CT images were obtained through brain without IV contrast material. COMMENTS: The study shows normal configuration of sella turcica. There are no intra or extra-axial collections. There is no mass effect or midline shift. There is no evidence of hematoma formation. No hydrocephalus is present. The ventricles are symmetrical. No abnormal calcifications are present. No significant focal abnormalities are seen either in the posterior fossa or supratentorial compartme nt. IMPRESSION: No acute intracranial pathology. Thank you for your kind referral of this patient.
[2016-11-08 20:30] LABS: DIFF SLIDE NUMBER 150; MEAN CORPUSCULAR HEMOGLOBIN 22.2 pg (27.0-33.0); MEAN CORPUSCULAR HGB CONC 30.7 g/dl (32.0-36.5); MEAN CORPUSCULAR VOLUME 72.4 fl (80.0-96.0); PLATELET COUNT, AUTOMATED 345 k/mm3 (150-450); RED CELL DISTRIBUTION WIDTH 18.6 % (11.5-14.5); WHITE BLOOD COUNT 5.2 K/mm3 (4.0-10.0)
[2016-11-08 20:49] LABS: ALBUMIN 3.1 GM/DL (3.2-5.2); ALBUMIN/GLOBULIN RATIO 0.79 (1.00-1.93); ALKALINE PHOSPHATASE 165 U/L (45-117); ALT/SGPT 77 U/L (12-78); ANION GAP 8 MEQ/L (8-16); AST/SGOT 57 U/L (15-37); BILIRUBIN,DIRECT 0.1 MG/DL (0.0-0.2); BILIRUBIN,TOTAL 0.2 MG/DL (0.2-1.0); BLOOD UREA NITROGEN 19 MG/DL (7-18); CALCIUM LEVEL 8.7 MG/DL (8.5-10.1); CARBON DIOXIDE LEVEL 28 MEQ/L (21-32); CHLORIDE LEVEL 108 MEQ/L (98-107); CREATININE FOR GFR 0.56 MG/DL (0.55-1.02); GLOMERULAR FILTRATION RATE > 60.0 (>60); GLUCOSE, FASTING 86 MG/DL (70-105); SODIUM LEVEL 144 MEQ/L (136-145)
[2016-11-08 20:51] LABS: INR 2.1
[2016-11-08 21:09] LABS: BASOPHILS 1 % (0-4); EOSINOPHILS 12 % (0-5)
[2016-11-08 21:10] LABS: ANISOCYTOSIS 1+; HYPOCHROMASIA 1+; MICROCYTOSIS 2+
[2016-11-08 21:54] VITALS: BP 140/80
== END 2016-11-08 22:32 | disposition home or self-care (01) ==
LOC: M ED 19:47
DX: R51 Headache (principal); Z86.718 Personal history of other venous thrombosis and embolism; Z88.2 Allergy status to sulfonamides; Z91.09 Other allergy status, other than to drugs and biological substances; Z79.899 Other long term (current) drug therapy; Z79.01 Long term (current) use of anticoagulants
CPT/HCPCS: 70450; 80048; 80076; 81001; 85025; 85610; 85730; 96374; 96375; 99282; J1200; J2765; J2930

== ENCOUNTER → 2016-11-12 | Outpatient (REF) | payer BC ==
[2016-11-12 14:34] LABS: INR 2.46
== END ==
LOC: M SFHCPLAZ 13:12
PROVIDERS: ATTEND Hospitalist
DX: I82.432 Acute embolism and thrombosis of left popliteal vein (principal)

== ENCOUNTER → 2017-01-08 | Outpatient (REF) | payer BC ==
[2017-01-08 20:14] LABS: MEAN CORPUSCULAR HEMOGLOBIN 24.5 pg (27.0-33.0); MEAN CORPUSCULAR HGB CONC 32.1 g/dl (32.0-36.5); MEAN CORPUSCULAR VOLUME 76.6 fl (80.0-96.0); RED CELL DISTRIBUTION WIDTH 16.5 % (11.5-14.5); WHITE BLOOD COUNT 7.6 K/mm3 (4.0-10.0)
== END ==
LOC: M SFHCPLAZ 19:14
DX: R42 Dizziness and giddiness (principal)

== ENCOUNTER → 2017-08-02 | Outpatient (REF) | payer BC ==
[2017-08-02 19:26] LABS: BASO # 0.1 10^3/uL (0.0-0.2); BASO % 0.8 % (0.0-1.0); EOS # 0.3 10^3/uL (0.0-0.50); EOS % 4.2 % (0.0-3.0); IMMATURE GRANULOCYTE % 0.4 % (0-0); LYMPH # 1.7 10^3/uL (1.5-4.5); LYMPH % 22.4 % (24.0-44.0); MEAN CORPUSCULAR HEMOGLOBIN 28.6 pg (27.0-33.0); MEAN CORPUSCULAR HGB CONC 33.9 g/dl (32.0-36.5); MEAN CORPUSCULAR VOLUME 84.2 fl (80.0-96.0); MONO # 0.5 10^3/uL (0.0-0.8); NEUTROPHILS # 4.9 10^3/uL (1.8-7.7); NEUTROPHILS % 65.2 % (36.0-66.0); PLATELET COUNT, AUTOMATED 266 10^3/uL (150-450); RED CELL DISTRIBUTION WIDTH 12.7 % (11.5-14.5); WHITE BLOOD COUNT 7.6 10^3/uL (4.0-10.0)
== END ==
LOC: M SFHCPLAZ 14:00
PROVIDERS: ATTEND Family Medicine
DX: N92.1 Excessive and frequent menstruation with irregular cycle (principal)